=== PATIENT | female | born 1995 | race Caucasian/White ===

== ENCOUNTER 2018-09-09 18:30 | Emergency (ER) | payer BC ==
[2018-09-09 18:36] VITALS: RESP 18; TEMP 99
--- NOTE | 2018-09-09 18:48 | ED ---
General Adult HPI - General Chief complaint: Psychiatric Symptoms Stated complaint: Mental health Time Seen by Provider: 09/09/18 18:38 Source: patient, RN notes reviewed Mode of arrival: ambulatory Limitations: no limitations - History of Present Illness Initial comments: 23-year-old female with a past medical history of anxiety and depression presents to the emergency department for suicidal thoughts times several years. Patient was brought in by Manish MICHAELS. Patient states she has had suicidal thoughts for several years. Patient believes these are secondary to not being able to see her brother and sister due to custody problems with her aunt. States that her mother is an opioid addict which has not helped the situation. States that she does not think she actually wants to but is having some suicidal thoughts. States she does not really have a plan at this time but states that when she was driving she thinks about flipping her car. However again states that she would never do that because She does not actually want to . Patient states she did start counseling Thursday but is not think it is going to work. States that she is currently weaning herself off her antidepressants because she wants to do a more holistic route. States exercise has been helping her.denies any current suicidal thoughts at this moment. Patient has no other complaints at this time including shortness of breath, chest pain, abdominal pain, nausea or vomiting, headache, or visual changes. - Related Data Home Medications Medication Instructions Recorded Confirmed Fluticasone Nasal [place] [Flonase 1 spray EA NOSTRIL DAILY 11/20/17 09/09/18 Nasal Powell] Calcium Polycarbophil [Fiber-Lax] 625 mg PO DAILY 09/09/18 09/09/18 Desvenlafaxine Succinate [Pristiq 50 mg PO DAILY 09/09/18 09/09/18 ER] Multivitamins, Thera [Multivitamin 1 tab PO DAILY 09/09/18 09/09/18 (formulary)] OLANZapine [ZyPREXA] 2.5 - 5 mg PO DAILY PRN 09/09/18 09/09/18 Ranitidine HCl 150 mg PO BID 09/09/18 09/09/18 Allergies Allergy/AdvReac Type Severity Reaction Status Date / Time No Known Allergies Allergy Verified 09/09/18 19:54 Review of Systems ROS Statement: Those systems with pertinent positive or pertinent negative responses have been documented in the HPI. ROS Other: All systems not noted in ROS Statement are negative. Past Medical History Past Medical History: GERD/Reflux Additional Past Medical History / Comment(s): MIGRANE HEADACHE, ANEMIA History of Any Multi-Drug Resistant Organisms: None Reported Past Surgical History: No Surgical Hx Reported Additional Past Surgical History / Comment(s): WISDOM TEETH Past Anesthesia/Blood Transfusion Reactions: No Reported Reaction Past Psychological History: Anxiety, Depression Smoking Status: Current every day smoker Past Alcohol Use History: Occasional Past Drug Use History: None Reported - Past Family History Mother Family Medical History: No Reported History General Exam Limitations: no limitations General appearance: alert, in no apparent distress Head exam: Present: atraumatic, normocephalic, normal inspection Eye exam: Present: normal appearance, PERRL, EOMI. Absent: scleral icterus, conjunctival injection, periorbital swelling ENT exam: Present: normal exam, mucous membranes moist Neck exam: Present: normal inspection, full ROM. Absent: tenderness, meningismus, lymphadenopathy Respiratory exam: Present: normal lung sounds bilaterally. Absent: respiratory distress, wheezes, rales, rhonchi, stridor Cardiovascular Exam: Present: regular rate, normal rhythm, normal heart sounds. Absent: systolic murmur, diastolic murmur, rubs, gallop, clicks Neurological exam: Present: alert, oriented X3, CN II-XII intact Psychiatric exam: Present: suicidal ideation Course Vital Signs 09/09/18 18:35 Temperature 99.0 F Pulse Rate 66 Respiratory 18 Rate Blood Pressure 120/83 O2 Sat by Pulse 99 Oximetry Medical Decision Making - Medical Decision Making 23-year-old female presents to the emergency determine for suicidal thoughts times several years. States that the patient to be getting worse lately due to family problems. States that she does not have a plan of suicide. States that she actually does not want to . Patient just started counseling 2 days ago. Patient currently weaning herself off of antidepressants for more holistic approach. Patient was an IV by [facility], at this time they recommend outpatient treatment. Patient is agreeable to this. Patient will follow up with primary care in 1-2 days. She will return here if she has any worsening symptoms or additional thoughts of suicide. - Lab Data Lab Results 09/09/18 Range/Units Unknown Urine Opiates Screen Not Detected (NotDetected) Ur Oxycodone Screen Not Detected (NotDetected) Urine Methadone Screen Not Detected (NotDetected) Ur Propoxyphene Screen Not Detected (NotDetected) Ur Barbiturates Screen Not Detected (NotDetected) U Tricyclic Antidepress Not Detected (NotDetected) Ur Phencyclidine Scrn Not Detected (NotDetected) Ur Amphetamines Screen Not Detected (NotDetected) U Methamphetamines Scrn Not Detected (NotDetected) U Benzodiazepines Scrn Not Detected (NotDetected) Urine Cocaine Screen Not Detected (NotDetected) U Marijuana (THC) Screen Detected H (NotDetected) Disposition Clinical Impression: Situational depression Disposition: HOME SELF-CARE Condition: Good Instructions (If sedation given, give patient instructions): Depression (ED), Suicide Prevention (ED) Additional Instructions: Please follow up with primary care in 1-2 days. Return here to the ED if you have any worsening symptoms. Is patient prescribed a controlled substance at d/c from ED?: No Referrals: Trev Clay MD [Primary Care Provider] - 1-2 days Time of Disposition: 21:18
[2018-09-09 19:21] LABS: Amphetamine Screen,Urine Not Detected (NotDetected); Benzodiazepines Screen,Urine Not Detected (NotDetected); Cocaine Screen,Urine Not Detected (NotDetected); Opiate Screen,Urine Not Detected (NotDetected); Phencyclidine Screen,Urine Not Detected (NotDetected); Tricyclic Antidepressant,Urine Not Detected (NotDetected); Urn Cannabinoid Scrn Detected (NotDetected)
[2018-09-09 19:22] LABS: Barbiturate Screen,Urine Not Detected (NotDetected); Methadone Screen, Urine Not Detected (NotDetected); Oxycodone Screen, Urine Not Detected (NotDetected)
[2018-09-09 21:56] VITALS: BP 130/99; PULSE 69
== END 2018-09-09 21:54 | disposition home or self-care (01) ==
LOC: EC 18:30
DX: F43.21 Adjustment disorder with depressed mood (principal); K21.9 Gastro-esophageal reflux disease without esophagitis; F32.9 Major depressive disorder, single episode, unspecified; F17.200 Nicotine dependence, unspecified, uncomplicated; Z79.51 Long term (current) use of inhaled steroids; Z79.899 Other long term (current) drug therapy
CPT/HCPCS: 80306; 82075; 99285